=== PATIENT | female | born 1975 | race Caucasian/White ===

== ENCOUNTER 2023-09-11 09:54 | Emergency (ER) | payer OTHER, SELFPAY ==
[2023-09-11 09:56] VITALS: BP 134/82; PULSE 74; TEMP 36.7; O2SAT 100; BMI 23.8
--- NOTE | 2023-09-11 10:10 | ED.GENADUL1 ---
HPI HPI - General Adult General Chief complaint: Urogenital-Female Stated complaint: flank pain Time Seen by Provider: 09/11/23 10:10 Source: patient Mode of arrival: walk-in Limitations: no limitations History of Present Illness HPI narrative: This patient is here complaining of left flank pain. She has had a history of kidney stones. Discomfort started last night. She is currently afebrile here in the emergency room. She has not seen any blood in her urine. She has a known history of left-sided stone that has not bothered her for a while. She has not had any vomiting. The pain started yesterday afternoon and now she is more uncomfortable. She does not have any analgesics at home. She has not taken any antibiotics. She had previous lithotripsy done by Dr. Garrett. She states she has had a hysterectomy but still has 1 ovary. She does have an estrogen patch on. 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 Related Data Allergies Allergy/AdvReac Type Severity Reaction Status Date / Time latex Allergy Intermediate Verified 09/11/23 09:59 Opioid HPI Opioid Management Most Recent Opioid Data: Last ED Pain Assessment 09/11/23 11:45 Exam Narrative Exam Narrative: Awake alert pleasant does appear to be uncomfortable. Examining her back area , there is no costovertebral angle tenderness.. Her vital signs are stable her skin is warm and dry she is not having any emesis at this Examination there is no tenderness in the right upper quadrant she has had a cholecystectomy. There is no spleen o megaly. No tenderness in the right lower quadrant. There is good bowel sounds. There is no guarding rebound rigidity or peritoneal findings. There is no back pain. Constitutional Vital Signs, click to edit/add: Last Vital Signs Temp 98.0 F 09/11/23 09:56 Pulse 72 09/11/23 10:50 Resp 16 09/11/23 10:50 BP 113/72 09/11/23 10:50 Pulse Ox 99 09/11/23 10:50 O2 Del Method Room Air 09/11/23 09:56 Course Vital Signs Vital signs: Vital Signs Temperature 98.0 F 09/11/23 09:56 Pulse Rate 74 09/11/23 09:56 Respiratory Rate 18 09/11/23 09:56 Blood Pressure 134/82 09/11/23 09:56 Pulse Oximetry 100 06/22/24 09:56 Oxygen Delivery Method Room Air 09/11/23 09:56 Temperature 98.0 F 09/11/23 09:56 Pulse Rate 72 09/11/23 10:50 Respiratory Rate 16 09/11/23 10:50 Blood Pressure 113/72 09/11/23 10:50 Pulse Oximetry 99 09/11/23 10:50 Oxygen Delivery Method Room Air 09/11/23 09:56 Medical Decision Making MDM Narrative Medical decision making narrative: This patient's urinalysis is normal her clinical exam is normal and his CT shows some benign nonobstructing left kidney stones. Her CT report was discussed in detail. She said the pain seems to be worse when she is moving so this could be more of a Lab Data Labs: Lab Results 09/11/23 Range/Units 10:00 Urine Color Lt. yellow (YELLOW) Urine Clarity Clear (CLEAR) Urine pH 6.0 (5.0-9.0) Ur Specific [place] <=1.005 A (1.005-1.025) Urine Protein Negative (NEG/TRACE) mg/dL Urine Glucose (UA) Negative (NEGATIVE) mg/dL Urine Ketones Negative (NEGATIVE) mg/dL Urine Occult Blood Negative (NEGATIVE) Urine Nitrite Negative (NEGATIVE) Urine Bilirubin Negative (NEGATIVE) Urine Urobilinogen 0.2 (0.2-1.0) EU/dL Ur Leukocyte Esterase Negative (NEGATIVE) Discharge Plan Discharge Stand Alone Forms: Portal Instructions Chief Complaint: Urogenital-Female Clinical Impression: Acute left flank pain Patient Disposition: Home, Self-Care Print Language: Bengali Additional Instructions: May use Toradol as needed for discomfort. Return if symptoms worsen or you develop fever Referrals: Physician,Non-Staff, MD [Primary Care Provider] - 1 week
--- NOTE | 2023-09-11 10:16 | CT_ITS ---
[address] [address] Patient Name: NIKOLAI TERAN MRN: [id number] date: 1975 Sex: F Assigned Patient Location: ER Current Patient Location: Accession/Order Number: [id number] Exam Date: 09/11/2023 10:48 Report Date: 09/11/2023 11:36 At the request of: SRIDEVI BOB Procedure: CT abdomen pelvis wo con EXAM: CT abdomen pelvis wo con INDICATION: Kidney stones left side. COMPARISON: CT abdomen pelvis 08/12/2021 TECHNIQUE: Multiple contiguous axial CT images of the abdomen and pelvis were obtained without the use of intravenous contrast. Sagittal and coronal reconstructions were performed. Dose reduction techniques were achieved by using: automated exposure control and/or adjustment of mA and /or kV according to patient size and/or use of iterative reconstruction technique. FINDINGS: Evaluation of visceral organs limited by noncontrast technique. LOWER CHEST: No significant abnormality. ABDOMEN AND PELVIS: LIVER: Stable subcentimeter hypoattenuating right hepatic lobe lesion, likely a cyst. BILIARY SYSTEM: Cholecystectomy. No biliary ductal dilatation. PANCREAS: Unremarkable. SPLEEN: Unremarkable. ADRENAL GLANDS: Normal. URINARY SYSTEM: Left renal upper pole cortical scarring. Punctate nonobstructing 1 mm left renal stone. Multiple nonobstructing left renal stones measuring up to 8 mm. No hydronephrosis or urolithiasis. Normal bladder. REPRODUCTIVE: Hysterectomy unremarkable left ovary. The right ovary is not identified. GASTROINTESTINAL TRACT: Normal caliber bowel. No bowel wall thickening or inflammation. Colonic diverticulosis without diverticulitis. Normal appendix. VESSELS: Nonaneurysmal abdominal aorta. LYMPH NODES: No adenopathy. PERITONEUM: No ascites or pneumoperitoneum. MUSCULOSKELETAL: SOFT TISSUES: Unremarkable soft tissues. BONES: No acute osseous abnormality or suspicious osseous lesion. ALONSO: (series:image) CT/CT abdomen pelvis wo con IMPRESSION: 1. No evidence of obstructive uropathy or other acute process. 2. Bilateral nephrolithiasis. 3. Colonic diverticulosis. Electronically authenticated by: SAIDA STEPHEN Date: 09/11/2023 11:36
[2023-09-11] MEDS: 0.9 % SODIUM CHLORIDE 1,000 ML 100 ML IV (10:23)
[2023-09-11] MEDS: KETOROLAC TROMETHAMINE 30 MG/ML VIAL IVP (10:24)
[2023-09-11] MEDS: ONDANSETRON PF 4 MG/2 ML VIAL IV (10:24)
[2023-09-11 10:39] LABS: Bilirubin Urine NEGATIVE (NEGATIVE); Blood Urine NEGATIVE (NEGATIVE); Clarity Urine CLEAR (CLEAR); Color Urine LT. YELLOW (YELLOW); Glucose Urine UA NEGATIVE (NEGATIVE); Ketones Urine NEGATIVE (NEGATIVE); Leukocyte Esterase Urine NEGATIVE (NEGATIVE); Nitrite Urine NEGATIVE (NEGATIVE); Protein Urine NEGATIVE (NEG/TRACE); Specific Gravity Urine <=1.005 (1.005-1.025); Urobilinogen Urine 0.2 EU/dL (0.2-1.0)
[2023-09-11 10:49] LABS: Urine Microscopic Indicated NO
[2023-09-11 10:50] VITALS: BP 113/72; PULSE 72; O2SAT 99
[2023-09-11 12:09] VITALS: BP 94/53; PULSE 64; TEMP 36.5; O2SAT 99
== END 2023-09-11 12:10 | disposition home or self-care (01) ==
PROVIDERS: Emergency Provider Emergency Medicine Emergency Medical Services
DX: R10.9 Unspecified abdominal pain (principal); Z87.442 Personal history of urinary calculi; Z90.710 Acquired absence of both cervix and uterus; Z90.721 Acquired absence of ovaries, unilateral; Z90.49 Acquired absence of other specified parts of digestive tract
CPT/HCPCS: 74176; 81003; 96374; 96375; 99284; J1885; J2405